=== PATIENT | female | born 2000 | race Caucasian/White ===

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

== ENCOUNTER → 2021-06-21 11:47 | Outpatient (CLI) | payer OTHER, SELFPAY ==
--- NOTE | ~2021-06-21 | US_ITS ---
EXAMINATION: US transvaginal DATE: 06/21/2021 12:26 INDICATION: Other specified abnormal uterine and vaginal bleeding, pelvic pain TECHNIQUE: Multiple endovaginal sonographic images of the pelvis were obtained. COMPARISON: 12/11/2019 FINDINGS: The uterus measures 6.9 x 3 x 3.8 cm. The endometrial complex measures 2 mm. The right ovar y measures 3 x 1.5 x 1.5 cm. The left ovary measures 2.3 x 1.8 x 2 cm. There is normal vascular flow in the ovaries. There is no free fluid in the pelvis. IMPRESSION: 1. No sonographic correlate for the patient's symptoms. Reviewed, dictated and finalized at location B.
== END ==
PROVIDERS: PCP Internal Medicine; Visit Provider Nurse Practitioner
DX: N93.8 Other specified abnormal uterine and vaginal bleeding (principal)
CPT/HCPCS: 76830

== ENCOUNTER → 2021-11-02 11:47 | Outpatient (CLI) | payer OTHER, SELFPAY ==
--- NOTE | ~2021-11-02 | US_ITS ---
US thyroid INDICATION: Iodine deficiency related goiter TECHNIQUE: Real-time sonographic images of the thyroid gland were obtained. COMPARISON: No prior studies for comparison. FINDINGS: The right thyroid lobe measures 5.3 x 1.3 x 1.6 cm. The left thyroid lobe measures 4.8 x 1 .2 x 1.6 cm. There is a 3 mm cyst in the right lobe which is benign. There is normal echotexture and echogenicity throughout the thyroid gland. Normal vascular flow is present. IMPRESSION: 1. Benign 3 mm cyst of the right thyroid lobe. Otherwise, unremarkable thyroid ultrasound. Reviewed, dictated and finalized at location A. HOUSEKEEPER
== END ==
PROVIDERS: PCP Internal Medicine; Visit Provider Internal Medicine
DX: E01.0 Iodine-deficiency related diffuse (endemic) goiter (principal)
CPT/HCPCS: 76536

== ENCOUNTER 2023-02-17 09:29 | Emergency (ER) | payer OTHER, SELFPAY ==
[2023-02-17 09:41] VITALS: BP 133/88; PULSE 91; RESP 16; TEMP 36.7; O2SAT 100
--- NOTE | 2023-02-17 09:54 | ED.WOUNDLAC ---
HPI - Wound/Laceration General Chief Complaint: Wound/Laceration Stated Complaint: right hand finger lac Time Seen by Provider: 02/17/23 09:54 Source: patient Mode of arrival: ambulatory Limitations: no limitations History of Present Illness HPI narrative: 22-year-old female presented for complaint of laceration to the right middle finger tip. She states she cut it on a can of cat food today. Endorses a flap. She rinsed it and applied alcohol to the site prior to arrival. She states the finger is numb. Patient has full ROM. Denies active bleeding. Related Data Home Medications Medication Instructions Recorded Confirmed prenat.vits,berto,[id number] 1 tablet PO DAILY 12/23/20 02/17/23 riboflavin (vitamin B2) 100 mg 200 mg PO BID 01/27/23 02/17/23 tablet (Vitamin B-2) norethindrone acetate 1.5 1 tablet PO DAILY 02/17/23 02/17/23 mg-ethinyl estradiol 30 mcg tablet (Ashlee) Allergies Allergy/AdvReac Type Severity Reaction Status Date / Time tree nut Allergy Severe Anaphylaxis Verified 02/17/23 09:53 Review of Systems Review of Systems: CONSTITUTIONAL: Denies body aches, fever, chills, or sweats. EYES: Denies visual changes, redness, or discharge. ENT: Denies rhinorrhea, congestion CARDIOVASCULAR: Denies chest pain, palpitations, or edema. RESPIRATORY: Denies cough or dyspnea. GASTROINTESTINAL: Denies abdominal pain, nausea, vomiting, or diarrhea. SKIN: per HPI MUSCULOSKELETAL: Denies back pain, joint pain, or myalgia. NEUROLOGIC: Denies headache, numbness, tingling, or weakness. [facility] Past Medical History Medical History Anxiety Asthma Hx of tonsillitis Pneumonia Surgical History Surgical History History of tonsillectomy and adenoidectomy Family History Family History Grandparent Family history of primary malignant neoplasm of liver Family history of malignant neoplasm of breast Father Hypertension Patient's father is in good health Mother Hypertension Patient's mother is in good health Social History Social History Smoking status: Never smoker Tobacco type: e-cigarettes/vaping Second hand tobacco smoke exposure: Yes Alcohol intake: current Drinks per week: 1 Substance use: never Lack of Transportation: No Lack of Food: Never True Current Housing: I Have Housing Concerned About Future Housing: No Difficulty Paying Gas/Electric Bills: No Difficulty Paying for Meds: No Currently Unemployed: No Education: High School Diploma/GED Difficulty w/ Childcare or Family Care: No Comments At time of signature, I have reviewed and agree with nursing past medical, surgical, social and family history unless otherwise noted. Please see nursing chart for further information. There is no relevant family history pertinent to the presenting complaint Exam Narrative: GENERAL: Well-appearing HEAD: Normocephalic, atraumatic. EYES: conjunctivae clear, and EOMI. ENT: Mucous membranes moist. Oropharynx without edema, erythema or lesions. NECK: Supple. No lymphadenopathy CHEST: Clear to auscultation. HEART: Regular rate and rhythm. SKIN: Warm, dry. approx 0.5cm flap superficial laceration to distal phalanx of right 3rd digit. No active bleeding. NEURO: Alert and oriented x3. Course Course Emergency Course: Patient is aware of diagnosis, understands and agrees to treatment plan. Anticipatory guidance given. Patient agrees to follow-up as directed and is aware of reasons to seek care at the emergency department. Portions of this record may have been created with voice recognition software Level of Care: Express Care Visit Vital Signs Vital signs: Vital Signs Temperature 98.1 F 02/17/23 09:41 Pulse Rate 91 02/17/23 09:
== END 2023-02-17 10:02 | disposition home or self-care (01) ==
PROVIDERS: Emergency Provider Nurse Practitioner Family; PCP Internal Medicine
DX: S61.212A Laceration without foreign body of right middle finger without damage to nail, initial encounter (principal); F17.290 Nicotine dependence, other tobacco product, uncomplicated; W26.8XXA Contact with other sharp object(s), not elsewhere classified, initial encounter
CPT/HCPCS: 12001; 99213; G0463

== ENCOUNTER 2023-09-27 15:07 | Emergency (ER) | payer OTHER, SELFPAY ==
[2023-09-27] VITALS (23 sets, daily range): BP systolic 98–143; BP diastolic 65–86; PULSE 68–124; RESP 10–24; TEMP 36.6; O2SAT 95–100
--- NOTE | 2023-09-27 15:47 | PC.NURSE ---
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 between [id number] pt began experiencing contractures of wrists and feet that have not let up. pt boyfriend tried relieving the stiffness with no relief.
--- NOTE | 2023-09-27 17:42 | ECG_ITS ---
Measurements Intervals [place] Rate: 75 P: 34 NE: 105 QRS: 51 QRSD: 81 T: 38 QT: 371 QTc: 415 Interpretive Statements SINUS RHYTHM WITH SHORT NE INTERVAL BORDERLINE ECG COMPARED TO ECG 10/15/2019 11:20:41 NO SIGNIFICANT CHANGES Electronically Signed On 09-27-2023 18:50:17 SENIOR RESIDENT CARE DIRECTOR by Memo Pineda D.O.
--- NOTE | 2023-09-27 17:45 | ED.ANXIETY ---
HPI - Anxiety General Chief Complaint: Anxiety Stated Complaint: tremors Time Seen by Provider: 09/27/23 17:20 History of Present Illness HPI narrative: 23-year-old female with a history of tremor, syncope anxiety, and carpopedal spasms reports for evaluation for hand foot spasms since 0900 this morning. 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 States this morning around 9:00 a.m., she was seen on the couch and began having tremors in her hands and head which is not abnormal for her. States they then moved into carpopedal contractures and foot contractures and have lasted until 1600 today. She states she still has some residual carpopedal spasms still, although they have improved. She reports with her mother states she has never seen her contractures last this long and was concerned because the patient's feet were turning ashy in blue after prolonged contractures. The patient has been evaluated by neurologist, Dr. Cruz at [facility] for her tremors and contractures. She has an upcoming appointment on 10/11/23. The neurologist has not found a cause for the patient's tremors, per the patient and she is not medicated. The patient is denying current anxiety state, chest pain or shortness of breath, urine complaints, abdominal pain, vision changes or focal numbness or weakness, loss of consciousness, history of seizures. She does report a tension-type headache which is very common for her she states she has ?chronic headaches?. His headache is unchanged from her baseline. She denies head injury or trauma. Related Data Home Medications Medication Instructions Recorded Confirmed prenat.vits,berto,[id number] 1 tablet PO DAILY 12/23/20 08/10/23 norethindrone acetate 1.5 1 tablet PO DAILY 02/17/23 08/10/23 mg-ethinyl estradiol 30 mcg tablet (Ashlee) epinephrine 0.15 mg/0.3 mL 0.15 mg IM Q30M PRN 05/26/23 08/10/23 injection,auto-injector sumatriptan succinate 100 mg tablet See Rx Instructions PO .COMPLEX 08/09/23 08/10/23 Allergies Allergy/AdvReac Type Severity Reaction Status Date / Time tree nut Allergy Severe Anaphylaxis Verified 08/09/23 08:15 Review of Systems Review of Systems: CONSTITUTIONAL: Denies fever, chills, or sweats. EYES: Denies visual changes, redness, or discharge. ENT: Denies rhinorrhea, congestion, sore throat, or otalgia. CARDIOVASCULAR: Denies chest pain, palpitations, or edema. RESPIRATORY: Denies cough or dyspnea. GASTROINTESTINAL: Denies abdominal pain, nausea, vomiting, or diarrhea. GENITOURINARY: Denies dysuria or hematuria. SKIN: Denies rash or itching. MUSCULOSKELETAL: Denies back pain, joint pain, or myalgia. NEUROLOGIC: See HPI PSYCHIATRIC: See HPI [facility] Past Medical History Medical History (Updated 09/27/23 @ 20:36 by Magaly Valverde PA-C) Anxiety Asthma Hx of tonsillitis Pneumonia Surgical History Surgical History History of tonsillectomy and adenoidectomy Family History Family History Grandparent Family history of primary malignant neoplasm of liver Family history of malignant neoplasm of breast Father Hypertension Patient's father is in good health Mother Hypertension Patient's mother is in good health Social History Social History Smoking status: Never smoker Tobacco type: e-cigarettes/vaping Second hand tobacco smoke exposure: Yes Alcohol intake: current Drinks per week: 1 Substance use: never Lack of Transportation: No Lack of Food: Never True Current Housing: I Have Housing Concerned About Future Housing: No Difficulty Paying Gas/Electric Bills: No Difficulty Paying for Meds: No Currently Unemployed: No Education: High School Diploma/GED Difficulty w/ Childcare or Family Care: No
[2023-09-27] MEDS: KETOROLAC 30 MG/ML VIAL (*BKC) IV PUSH (18:19)
[2023-09-27] MEDS: diphenhydrAMINE HCl INJ 50 MG/ML VIAL 25 MG IV PUSH (18:20)
[2023-09-27] MEDS: LORazepam INJ (*CRX) 2 MG/ML VIAL 0.5 MG IV PUSH (18:21)
[2023-09-27] MEDS: PROCHLORPERAZINE EDISYLATE 10 MG/2 ML VIAL IV PUSH (18:22)
[2023-09-27] MEDS: SODIUM CHLORIDE 0.9% IV 1,000 ML 999 ML IV CONT (18:23)
[2023-09-27 18:36] LABS: Basophils Percent Auto 0.3 % (0.2-1.2); Eosinophils Absolute Auto 0.6 K/mm3 (0-0.3); Eosinophils Percent Auto 8.4 % (0-4.4); Hematocrit 42.1 % (37.0-47.0); Hemoglobin 14.3 g/dL (12.0-15.0); Immature Granulocyte Absolute 0.02 K/mm3 (0.00-0.031); Immature Granulocyte Percent A 0.3 % (0-0.5); Lymphocytes Absolute Auto 1.89 K/mm3 (0.9-3.2); Lymphocytes Percent Auto 25.7 % (18.3-44.2); Mean Corpuscular Hemoglobin 31.9 pg (26-34); Mean Platelet Volume 9.8 fl (7.4-10.4); Monocytes Absolute Auto 0.5 K/mm3 (0.1-0.6); Monocytes Percent Auto 6.5 % (2.6-8.5); Neutrophils Absolute Auto 4.3 K/mm3 (1.3-6.7); Neutrophils Percent Auto 58.8 % (45.5-73.1); Platelet Count Result 263 k/mm3 (150-375); Red Blood Count 4.48 M/mm3 (4.2-5.4); Red Cell Distribution Width 12.1 % (11.5-14.5); White Blood Count 7.3 K/mm3 (4.5-10.0)
[2023-09-27 18:45] LABS: Alanine Aminotransferase 21 U/L (6-35); Albumin Level 4.2 g/dL (3.5-5.1); Alkaline Phosphatase 73 U/L (38-126); Anion Gap 12 mmol/L (8-16); Aspartate Amino Transferase 26 U/L (14-36); Bilirubin,Total 0.5 mg/dL (0.2-1.3); Blood Urea Nitrogen 7 mg/dL (7-17); Calcium 9.2 mg/dL (8.4-10.2); Carbon Dioxide 22 mmol/L (22-30); Chloride 104 mmol/L (98-107); Creatine Kinase 30 U/L (30-135); Estimated CRCL calculation 122 ml/min; Estimated Glomerular Filt Rate > 60; Glucose 83 mg/dL (65-110); Potassium 3.7 mmol/L (3.4-5.0); Sodium 138 mmol/L (137-145)
[2023-09-27 18:54] LABS: Appearance Urine Cloudy (Clear); Bacteria Urine 2+ /hpf; Bilirubin Urine Negative (Negative); Blood Urine Negative (Negative); Color Urine Dark Yellow (Yellow); Glucose Urine UA Negative (Negative); Hyaline Casts Urine Present /lpf; Ketones Urine 2+ mg/dL (Negative); Leukocyte Esterase Ur 1+ LEU/UL (Negative); Nitrate Urine Negative (Negative); Protein Urine Trace mg/dL (Negative); RBC Urine 0-2 /hpf (0-2); Specific Grav Ur 1.032 (1.001-1.035); Squamous Epithelial Cell Urine Few /hpf (Few); WBC Urine 21-50 /hpf
[2023-09-27 18:55] LABS: Add Urine Microscopic? YES
== END 2023-09-27 20:54 | disposition home or self-care (01) ==
PROVIDERS: Emergency Provider Physician Assistant; PCP Internal Medicine
DX: G44.201 Tension-type headache, unspecified, intractable (principal); R29.0 Tetany
CPT/HCPCS: 36415; 80053; 81001; 81025; 82550; 83735; 85025; 87086; 87088; 93005; 96361; 96374; 96375; 99284; J0780; J1200; J1885; J2060; J7030

== ENCOUNTER 2025-05-09 12:19 | Emergency (ER) | payer OTHER, SELFPAY ==
--- NOTE | ~2025-05-09 | US_ITS ---
EXAMINATION: US OB <=14 wk fetus w TV DATE: 05/09/2025 13:38 INDICATION: Abdominal cramping TECHNIQUE: Real-time pelvic ultrasound utilizing both a transvaginal and transabdominal probe was pe rformed. The interpreting radiologist was not present for the study. COMPARISON: None. FINDINGS: The uterus measures 7.9 x 3.8 x 5.0 cm. There is a 3 mm likely intrauterine gestational sac with doub le deciduous sign but no discernible yolk sac or pole likely due to early stage of .Th e mean sac diameter is below range for assessment of gestational age. The right ovary measures 2.8 x 1.5 x 1.4 cm. The left ovary measures 2.9 x 2.9 x 2.0 cm. Vascular rachelle w identified in both ovaries on color Doppler. There is small amount of anechoic free fluid in the cu l-de-sac. IMPRESSION: 1. 3 mm likely intrauterine gestational sac with no discernible yolk sac or pole likely due to early stage of . The size of the presumptive gestational sac is below range for estimation o f gestational age would recommend follow-up with serial beta-hCG levels with repeat ultrasound to est ablish viability and gestational age as clinically indicated. Reviewed, dictated and finalized at location A. IMPRESSION: 1. 3 mm likely intrauterine gestational sac with no discernible yolk sac or fet al pole likely due to early stage of . The size of the presumptive ges tational sac is below range for estimation of gestational age would recommend f ollow-up with serial beta-hCG levels with repeat ultrasound to establish viabil ity and gestational age as clinically indicated.
[2025-05-09 12:21] VITALS: BP 136/82; PULSE 94; RESP 19; TEMP 36.4; O2SAT 100
--- NOTE | 2025-05-09 12:33 | ED_ITS ---
HPI - General Chief complaint: LEAD CONSULTANT <Tash Grullon APRN - Last Filed: 05/09/25 12:35> Stated complaint: cramping, 4 weeks , no bleeding <Tash Grullon APRN - Last Filed: 05/09/25 12:35> Time Seen by Provider: 05/09/25 15:34 <Tash Grullon APRN - Last Filed: 05/09/25 12:35> Focused HPI: Patient is a 25-year-old female who presents to the ER with abdominal cramping. She reports she is 4 weeks and started experiencing abdominal cramping this morning. Patient reports this is her 1st . She endorses fatigue, urinary frequency, and constipation. Patient denies any recent fevers, vaginal bleeding, or urinary burning. GENERAL: Well-appearing, well-nourished, and in no acute distress. HEAD: Normocephalic, atraumatic. CHEST: Clear to auscultation. ?No respiratory distress. HEART: Regular rate and rhythm.? NEURO: ?Alert and oriented x3. Patient screened in triage and initial orders placed.? ?Additional care and disposition to be based upon?diagnostic testing and treatment. <Tash Grullon APRN - Last Filed: 05/09/25 12:35> History of Present Illness HPI Narrative: This is a 25 year old female approximate GA 4 weeks who presents for evaluation for abdominal cramping.LMP 04/06/25 and she had positive test this past weekend. She states yesterday and today she has been having intermittent lower abdominal cramping. She does not have cramping at this moment. She denies fever, vomiting, dysuria, vaginal bleeding or fever. She called her OBGYN, Dr. Massey's office, and she reports she was referred to ER for labs and imaging. LAb done at triage and ultrasound ordered at triage < Yodit Hampton MD - Last Filed: 05/09/25 17:11> MD Complaint: abdominal pain <Yodit Hampton MD - Last Filed: 05/09/25 17:11> Related Data Home medications: Home Medications ?Medication ?Instructions ?Recorded ?Confirmed ?Last Taken ?Type prenat.vits,berto,tli-pmph-opamg 1 tablet PO DAILY 12/23/20 05/09/25 05/09/25 History epinephrine 0.15 mg/0.3 mL 0.15 mg IM Q30M PRN anaphylaxis 05/26/23 05/09/25 Unknown History injection,auto-injector cetirizine 10 mg tablet 10 mg PO TID 05/09/25 05/09/25 05/09/25 History midodrine 5 mg tablet 5 mg PO BID 05/09/25 05/09/25 05/09/25 History propranolol 10 mg tablet 10 mg PO Q12H 05/09/25 05/09/25 05/09/25 History <Tash Grullon LAST PATTERN GRADER - Last Filed: 05/09/25 12:35> Allergies/Adverse reactions: Allergies Allergy/AdvReac Type Severity Reaction Status Date / Time tree nut Allergy Severe Anaphylaxis Verified 05/09/25 15:40 avocado Allergy Unknown Verified 05/09/25 15:40 <Tash Grullon LAST PATTERN GRADER - Last Filed: 05/09/25 12:35> [facility] Past Medical History Medical History: Medical History Anxiety Pneumonia Asthma Hx of tonsillitis <Tash Grullon APRN - Last Filed: 05/09/25 12:35> Surgical History Surgical History: Surgical History History of tonsillectomy and adenoidectomy <Tash Grullon APRN - Last Filed: 05/09/25 12:35> Family History Family History: Family History Grandparent Family history of primary malignant neoplasm of liver Family history of malignant neoplasm of breast Father Hypertension Patient's father is in good health Mother Hypertension Patient's mother is in good health <Tash Grullon APRN - Last Filed: 05/09/25 12:35> Social History Social History: Social History Smoking status: Never smoker Tobacco type: e-cigarettes/vaping Second hand tobacco smoke exposure: Yes Alcohol intake: current Drinks per week: 1 Substance use: never Lack of Transportation: No Lack of Food: Never True Current Housing: I Have Housing Concerned About Future Housing: No Difficulty Paying Gas/Electric Bills: No Difficulty Paying for Meds: No Currently Unemployed: No Education: High School Diploma/GED Difficulty w/ Childcare or Family Care: No <Tash Grullon APRN - Last Filed: 05/09/25 12:35> Exam 2 Const: General: no acute distress and alert <Yodit Hampton MD - Last Filed: 05/09/25 17:11> Nutritional Appearance: well nourished <Yodit Hampton MD - Last Filed: 05/09/25 17:11> Orientation/consciousness: patient oriented x3 <Yodit Hampton MD - Last Filed: 05/09/25 17:11> HENMT: Head: normal to inspection <Yodit Hampton MD - Last Filed: 05/09/25 17:11> Eyes: EOM: EOMs intact bilaterally <Yodit Hampton MD - Last Filed: 05/09/25 17:11> Resp: Effort & Inspection: normal respiratory effort <Yodit Hampton MD - Last Filed: 05/09/25 17:11> Auscultation: clear to auscultation bilaterally <Yodit Hampton MD - Last Filed: 05/09/25 17:11> Cardio: Rate: regular rate <Yodit Hampton MD - Last Filed: 05/09/25 17:11> Rhythm: regular rhythm <Yodit Hampton MD - Last Filed: 05/09/25 17:11> Heart sounds: no murmurs <Yodit Hampton MD - Last Filed: 05/09/25 17:11> GI: GI Palp: Yes Soft to palpation, No Tenderness to palpation present (GI), No Guarding due to palpation present (GI) and No Rigid due to palpation < Yodit Hampton MD - Last Filed: 05/09/25 17:11> Auscultation: normal bowel sounds <Yodit Hampton MD - Last Filed: 05/09/25 17:11> : General: Yes no CVA tenderness <Yodit Hampton MD - Last Filed: 05/09/25 17:11> Bimanual exam- vagina & uterus: no cervical motion tenderness <Yodit Hampton MD - Last Filed: 05/09/25 17:11> Other: closed cervix on bimanual exam. at bedside during exam <Yodit Hampton MD - Last Filed: 05/09/25 17:11> Back/Spine/Pelvis: Back: no CVA tenderness <Yodit Hampton MD - Last Filed: 05/09/25 17:11> Neuro: General: patient oriented x3, moves all extremities and CN's II-XI intact bilaterally <Yodit Hampton MD - Last Filed: 05/09/25 17:11> Psych: Mental Status: mental status grossly normal <Yodit Hampton MD - Last Filed: 05/09/25 17:11> Affect: normal affect <Yodit Hampton MD - Last Filed: 05/09/25 17:11> Attitude: cooperative <Yodit Hampton MD - Last Filed: 05/09/25 17:11> Course Reevaluation(s) Reevaluation #1: I spoke with patient's mother and patient. She would like to hold off on rhogam screen . She is not bleeding. She was given return precautions. I discussed discharge plan <Yodit Hampton MD - Last Filed: 05/09/25 17:11> Date: 05/09/25 <Yodit Hampton MD - Last Filed: 05/09/25 17:11> Time: 16:16 <Yodit Hampton MD - Last Filed: 05/09/25 17:11> Consultations Consultation #1: I spoke with Dr. Massey over the phone and she agrees with patient getting HCG on Monday and patient will need to call office to follow up on phone. Her clinic visit for is June 02. <Yodit Hampton MD - Last Filed: 05/09/25 17:11> Date: 05/09/25 <Yodit Hampton MD - Last Filed: 05/09/25 17:11> Time: 16:05 <Yodit Hampton MD - Last Filed: 05/09/25 17:11> Vital Signs Vital signs: Vital Signs Temperature 97.6 F 05/09/25 12:21 Pulse Rate 94 05/09/25 12:21 Respiratory Rate 19 05/09/25 12:21 Blood Pressure 136/82 05/09/25 12:21 Pulse Oximetry 100 05/09/25 12:21 Oxygen Delivery Room Air 05/09/25 12:21 Temperature 97.9 F 05/09/25 16:32 Pulse Rate 78 05/09/25 16:32 Respiratory Rate 16 05/09/25 16:32 Blood Pressure 126/76 05/09/25 16:32 Pulse Oximetry 100 05/09/25 16:32 Oxygen Delivery Room Air 05/09/25 15:37 <Tash Grullon, LAST PATTERN GRADER - Last Filed: 05/09/25 12:35> Vital Signs Temperature 97.6 F 05/09/25 12:21 Pulse Rate 94 05/09/25 12:21 Respiratory Rate 19 05/09/25 12:21 Blood Pressure 136/82 05/09/25 12:21 Pulse Oximetry 100 05/09/25 12:21 Oxygen Delivery Room Air 05/09/25 12:21 Temperature 97.9 F 05/09/25 16:32 Pulse Rate 78 05/09/25 16:32 Respiratory Rate 16 05/09/25 16:32 Blood Pressure 126/76 05/09/25 16:32 Pulse Oximetry 100 05/09/25 16:32 Oxygen Delivery Room Air 05/09/25 15:37 <Yodit Hampton MD - Last Filed: 05/09/25 17:11> MDM - OB/Uterine Contractions Lab Data Attestation: I reviewed the patient's lab results. <Yodit Hampton MD - Last Filed: 05/09/25 17:11> Result diagrams: 05/09/25 14:17 05/09/25 14:17 <Tash Grullon, LAST PATTERN GRADER - Last Filed: 05/09/25 12:35> Labs: Lab Results 05/09/25 Range/Units 14:17 WBC 7.7 (4.5-10.0) K/mm3 RBC 4.02 L (4.2-5.4) M/mm3 Hgb 12.6 (12.0-15.0) g/dL Hct 37.8 (37.0-47.0) % MCV 94.0 (80-100) fl MCH 31.3 (26-34) pg MCHC 33.3 (32-36) g/dl RDW 12.6 (11.5-14.5) % Plt Count 243 (150-375) k/mm3 MPV 9.7 (7.4-10.4) fl Immature Gran % (Auto) 0.1 (0-0.5) % Neut % (Auto) 64.3 (45.5-73.1) % Lymph % (Auto) 18.8 (18.3-44.2) % Hardeman % (Auto) 6.3 (2.6-8.5) % Eos % (Auto) 10.1 H (0-4.4) % Baso % (Auto) 0.4 (0.2-1.2) % Lymph # (Auto) 1.45 (0.9-3.2) K/mm3 Hardeman # (Auto) 0.5 (0.1-0.6) K/mm3 Eos # (Auto) 0.8 H (0-0.3) K/mm3 Baso # (Auto) 0.0 (0.0-0.1) K/mm3 Abs Immat Gran (auto) 0.01 (0.00-0.031) K/mm3 Absolute Neuts (auto) 5.0 (1.3-6.7) K/mm3 Absolute Nucleated RBC 0.000 (0.0-0.012) K/mm3 Nucleated RBC % 0.0 (0.0-0.2) % Sodium 138 (137-145) mmol/L Potassium 4.0 (3.4-5.0) mmol/L Chloride 105 (98-107) mmol/L Carbon Dioxide 24 (22-30) mmol/L Anion Gap 9 (4-12) mmol/L BUN 9 (7-17) mg/dL Creatinine 0.57 L (0.7-1.0) mg/dL Estim Creat Clear Calc 134 ml/min Estimated GFR > 60 (59 - ) Glucose 92 (65-110) mg/dL Calcium 9.3 (8.4-10.2) mg/dL Total Bilirubin 0.5 (0.2-1.3) mg/dL AST 26 (14-36) U/L ALT 15 (6-35) U/L Alkaline Phosphatase 64 (38-126) U/L Total Protein 7.5 (6.3-8.2) g/dL Albumin 4.3 (3.5-5.1) g/dL Beta HCG, Quant 2800.60 mIU/ML Urine Color Yellow (Yellow) Urine Appearance Clear (Clear) Urine pH 8.0 (5.0-9.0) Ur Specific Jackson 1.018 (1.001-1.035) Urine Protein Negative (Negative) mg/dL Urine Glucose (UA) Negative (Negative) mg/dL Urine Ketones Negative (Negative) mg/dL Ur Blood (Man) Negative (Negative) Urine Nitrate Negative (Negative) Urine Bilirubin Negative (Negative) Urine Urobilinogen 1.0 (<2.0) mg/dL Leukocyte Esterase Rfl 1+ H (Negative) ENOCH/UL Urine RBC 0-2 (0-2) /hpf Urine WBC 0-5 (0-3) /hpf Ur Squamous Epith Cells Occasional (Few) /hpf Urine Bacteria Rare /hpf Urine Casts 0-2 <Tash Grullon, LAST PATTERN GRADER - Last Filed: 05/09/25 12:35> Lab Results 05/09/25 Range/Units 14:17 WBC 7.7 (4.5-10.0) K/mm3 RBC 4.02 L (4.2-5.4) M/mm3 Hgb 12.6 (12.0-15.0) g/dL Hct 37.8 (37.0-47.0) % MCV 94.0 (80-100) fl MCH 31.3 (26-34) pg MCHC 33.3 (32-36) g/dl RDW 12.6 (11.5-14.5) % Plt Count 243 (150-375) k/mm3 MPV 9.7 (7.4-10.4) fl Immature Gran % (Auto) 0.1 (0-0.5) % Neut % (Auto) 64.3 (45.5-73.1) % Lymph % (Auto) 18.8 (18.3-44.2) % Hardeman % (Auto) 6.3 (2.6-8.5) % Eos % (Auto) 10.1 H (0-4.4) % Baso % (Auto) 0.4 (0.2-1.2) % Lymph # (Auto) 1.45 (0.9-3.2) K/mm3 Hardeman # (Auto) 0.5 (0.1-0.6) K/mm3 Eos # (Auto) 0.8 H (0-0.3) K/mm3 Baso # (Auto) 0.0 (0.0-0.1) K/mm3 Abs Immat Gran (auto) 0.01 (0.00-0.031) K/mm3 Absolute Neuts (auto) 5.0 (1.3-6.7) K/mm3 Absolute Nucleated RBC 0.000 (0.0-0.012) K/mm3 Nucleated RBC % 0.0 (0.0-0.2) % Sodium 138 (137-145) mmol/L Potassium 4.0 (3.4-5.0) mmol/L Chloride 105 (98-107) mmol/L Carbon Dioxide 24 (22-30) mmol/L Anion Gap 9 (4-12) mmol/L BUN 9 (7-17) mg/dL Creatinine 0.57 L (0.7-1.0) mg/dL Estim Creat Clear Calc 134 ml/min Estimated GFR > 60 (59 - ) Glucose 92 (65-110) mg/dL Calcium 9.3 (8.4-10.2) mg/dL Total Bilirubin 0.5 (0.2-1.3) mg/dL AST 26 (14-36) U/L ALT 15 (6-35) U/L Alkaline Phosphatase 64 (38-126) U/L Total Protein 7.5 (6.3-8.2) g/dL Albumin 4.3 (3.5-5.1) g/dL Beta HCG, Quant 2800.60 mIU/ML Urine Color Yellow (Yellow) Urine Appearance Clear (Clear) Urine pH 8.0 (5.0-9.0) Ur Specific Jackson 1.018 (1.001-1.035) Urine Protein Negative (Negative) mg/dL Urine Glucose (UA) Negative (Negative) mg/dL Urine Ketones Negative (Negative) mg/dL Ur Blood (Man) Negative (Negative) Urine Nitrate Negative (Negative) Urine Bilirubin Negative (Negative) Urine Urobilinogen 1.0 (<2.0) mg/dL Leukocyte Esterase Rfl 1+ H (Negative) ENOCH/UL Urine RBC 0-2 (0-2) /hpf Urine WBC 0-5 (0-3) /hpf Ur Squamous Epith Cells Occasional (Few) /hpf Urine Bacteria Rare /hpf Urine Casts 0-2 <Yodit Hampton MD - Last Filed: 05/09/25 17:11> Imaging Data Radiologist's impression: ITS Impressions Obstetrics Ultrasound 05/09/25 13:40 IMPRESSION: 1. 3 mm likely intrauterine gestational sac with no discernible yolk sac or pole likely due to early stage of . The size of the presumptive gestational sac is below range for estimation of gestational age would recommend follow-up with serial beta-hCG levels with repeat ultrasound to establish viability and gestational age as clinically indicated. <Yodit Hampton MD - Last Filed: 05/09/25 17:11> Discharge Plan Discharge Clinical Impression: Abdominal pain during in first trimester <Tash Grullon APRN - Last Filed: 05/09/25 12:35> Patient Disposition: Home <Tash Grullon APRN - Last Filed: 05/09/25 12:35> Condition: Stable <Tash Grullon APRN - Last Filed: 05/09/25 12:35> Instructions: Antibiotic Form, Abdominal Pain in (ED) <Tash Grullon APRN - Last Filed: 05/09/25 12:35> Additional Instructions: I recommend staying hydrated. You can take tylenol for your pain. You will need to get labs drawn on Monday for HCG. Call Dr. Massey's office on Monday to follow up after labs drawn. <Tash Grullon APRN - Last Filed: 05/09/25 12:35> Patient Language: Tajik <Tash Grullon APRN - Last Filed: 05/09/25 12:35> Prescriptions: No Action prenat.vits,berto,[id number] Tablet 1 tablet PO DAILY (DME) Blood Glucose Test Strip See Rx Instructions .ROUTE .MEDSUPPLY Qty: 200 3RF Rx Instructions: use to test blood sugars twice daily (DME) blood-glucose meter [Blood Glucose Monitoring] Kit See Rx Instructions .ROUTE .MEDSUPPLY Qty: 1 0RF Rx Instructions: use to check blood sugar twice daily epinephrine 0.15 mg/0.3 mL auto-injector 0.15 mg IM Q30M PRN (Reason: anaphylaxis) Rx Instructions: do not exceed 12 doses per 24 hrs propranolol 10 mg tablet 10 mg PO Q12H midodrine 5 mg tablet 5 mg PO BID cetirizine 10 mg tablet 10 mg PO TID <Tash Grullon APRN - Last Filed: 05/09/25 12:35> Other Ambulatory Orders: Beta HCG Quantitative (Routine) Timeframe: 20250512 Location: Determined by Patient Ordered By: Yodit Hampton <Tash Grullon, KAROL - Last Filed: 05/09/25 12:35> Follow-up/Referrals: Prema,Dhaval Rome DO [Primary Care Provider] - <Tash Grullon APRN - Last Filed: 05/09/25 12:35>
[2025-05-09 14:31] LABS: Basophils Percent Auto 0.4 % (0.2-1.2); Eosinophils Absolute Auto 0.8 K/mm3 (0-0.3); Eosinophils Percent Auto 10.1 % (0-4.4); Hematocrit 37.8 % (37.0-47.0); Hemoglobin 12.6 g/dL (12.0-15.0); Immature Granulocyte Absolute 0.01 K/mm3 (0.00-0.031); Immature Granulocyte Percent A 0.1 % (0-0.5); Lymphocytes Absolute Auto 1.45 K/mm3 (0.9-3.2); Lymphocytes Percent Auto 18.8 % (18.3-44.2); Mean Corpuscular HGB Conc 33.3 g/dl (32-36); Mean Corpuscular Hemoglobin 31.3 pg (26-34); Mean Platelet Volume 9.7 fl (7.4-10.4); Monocytes Absolute Auto 0.5 K/mm3 (0.1-0.6); Monocytes Percent Auto 6.3 % (2.6-8.5); Neutrophils Percent Auto 64.3 % (45.5-73.1); Platelet Count Result 243 k/mm3 (150-375); Red Blood Count 4.02 M/mm3 (4.2-5.4); Red Cell Distribution Width 12.6 % (11.5-14.5); White Blood Count 7.7 K/mm3 (4.5-10.0)
[2025-05-09 14:43] LABS: Add Urine Microscopic? YES; Appearance Urine Clear (Clear); Bacteria Urine Rare /hpf; Bilirubin Urine Negative (Negative); Blood Urine Negative (Negative); Color Urine Yellow (Yellow); Glucose Urine UA Negative (Negative); Ketones Urine Negative (Negative); Leukocyte Esterase Ur 1+ LEU/UL (Negative); Nitrate Urine Negative (Negative); Non Pathogenic Casts 0-2; Protein Urine Negative (Negative); RBC Urine 0-2 /hpf (0-2); Specific Grav Ur 1.018 (1.001-1.035); Squamous Epithelial Cell Urine Occasional /hpf (Few); WBC Urine 0-5 /hpf (0-3)
[2025-05-09 15:08] LABS: Alanine Aminotransferase 15 U/L (6-35); Albumin Level 4.3 g/dL (3.5-5.1); Alkaline Phosphatase 64 U/L (38-126); Anion Gap 9 mmol/L (4-12); Aspartate Amino Transferase 26 U/L (14-36); Bilirubin,Total 0.5 mg/dL (0.2-1.3); Blood Urea Nitrogen 9 mg/dL (7-17); Calcium 9.3 mg/dL (8.4-10.2); Carbon Dioxide 24 mmol/L (22-30); Chloride 105 mmol/L (98-107); Estimated CRCL calculation 134 ml/min; Estimated Glomerular Filt Rate > 60; Glucose 92 mg/dL (65-110); Sodium 138 mmol/L (137-145); Total Protein 7.5 g/dL (6.3-8.2)
[2025-05-09 15:37] VITALS: BP 130/87; PULSE 86; RESP 16; TEMP 36.4; O2SAT 100
[2025-05-09 16:32] VITALS: BP 126/76; PULSE 78; RESP 16; TEMP 36.6; O2SAT 100
== END 2025-05-09 16:46 | disposition home or self-care (01) ==
PROVIDERS: Registered Nurse; Emergency Provider General Practice; PCP Internal Medicine
DX: O26.891 Other specified pregnancy related conditions, first trimester (principal); R10.30 Lower abdominal pain, unspecified; O99.511 Diseases of the respiratory system complicating pregnancy, first trimester; J45.909 Unspecified asthma, uncomplicated; Z87.01 Personal history of pneumonia (recurrent); Z77.22 Contact with and (suspected) exposure to environmental tobacco smoke (acute) (chronic); Z3A.01 Less than 8 weeks gestation of pregnancy
CPT/HCPCS: 36415; 76801; 76817; 80053; 81001; 84702; 85025; 87086; 99284

== ENCOUNTER 2025-05-14 15:47 | Outpatient (CLI) | payer OTHER, SELFPAY ==
--- NOTE | ~2025-05-14 | US_ITS ---
EXAMINATION: US OB transvaginal DATE: 05/14/2025 16:09 INDICATION: Pelvic pain and cramping TECHNIQUE: Real-time pelvic ultrasound utilizing both a transvaginal and transabdominal probe was pe rformed. The interpreting radiologist was not present for the study. COMPARISON: None. FINDINGS: The uterus measures 8.4 x 3.9 x 5.3 cm. There is an intrauterine gestational sac.There is a yolk sac but no discernible pole. The mean sac diameter measures 12 mm, which correlates with an estima morteza gestational age of 6 weeks and 0 days. The right and left ovaries are not visualized. There is mi nimal amount of likely physiologic free fluid in the pelvis. IMPRESSION: 1. Interval increase in size of a previously 3 mm, currently 12 mm intrauterine gestational sac, now with a discernible single yolk sac but no discernible pole likely due to early stage of pregnan cy. 2. Gestational age by ultrasound of 6 weeks 0 day(s) +/- 4 day(s) with ultrasound estimated date of delivery ([facility]) of 01/07/2026. Reviewed, dictated and finalized at location A. IMPRESSION: 1. Interval increase in size of a previously 3 mm, currently 12 mm intrauterine gestational sac, now with a discernible single yolk sac but no discernible fet al pole likely due to early stage of . 2. Gestational age by ultrasound of 6 weeks 0 day(s) +/- 4 day(s) with ultraso und estimated date of delivery ([facility]) of 01/07/2026.
== END 2025-05-14 15:48 | disposition home or self-care (01) ==
LOC: MICIMG 15:47
PROVIDERS: PCP Nurse Practitioner; Visit Provider Obstetrics & Gynecology Gynecology
DX: R10.2 Pelvic and perineal pain (principal); Z3A.01 Less than 8 weeks gestation of pregnancy
CPT/HCPCS: 76817